=== PATIENT | male | born 1960 | race Caucasian/White ===

== ENCOUNTER 2022-07-12 14:29 | Emergency (ER) | payer OTHER ==
[~2022-07-12] VITALS: Ht 175.3 cm; Wt 68.0 kg
[~2022-07-12 14:29] MED LIST: ATOR10; CEPH500 PO; ESCI10; ESCI10 PO; GENT.3OPSA OD; VISBIOME 112.51 EACH PO
[2022-07-12 15:21] LABS: BASOPHILS ABSOLUTE AUTO 0.07 K/mm3 (0.00-0.23); BASOPHILS PERCENT AUTO 1 % (0-2); EOSINOPHILS ABSOLUTE AUTO 0.29 K/mm3 (0.00-0.68); EOSINOPHILS PERCENT AUTO 2 % (0-6); Hematocrit 35.1 % (37.0-53.0); Hemoglobin 11.5 g/dL (13.5-17.5); IMMATURE GRAN ABSOLUTE AUTO 0.03 K/mm3 (0.00-0.10); IMMATURE GRAN PERCENT AUTO 0 % (0-1); LYMPHOCYTES ABSOLUTE AUTO 2.49 K/mm3 (0.84-5.20); LYMPHOCYTES PERCENT AUTO 20 % (21-46); MONOCYTES ABSOLUTE AUTO 1.17 K/mm3 (0.16-1.47); MONOCYTES PERCENT AUTO 9 % (4-13); Mean Corpuscular HGB 31.2 pg (26.0-34.0); Mean Corpuscular HGB Conc 32.8 g/dL (31.5-36.5); Mean Corpuscular Volume 95 fL (80-100); Mean Platelet Volume 9.9 fL (9.1-12.4); NEUTROPHILS ABSOLUTE AUTO 8.43 K/mm3 (1.96-9.15); NEUTROPHILS PERCENT AUTO 68 % (41-73); Platelet Count 240 K/mm3 (150-400); RDW Coefficient Variation 13.7 % (11.7-14.2); RDW Standard Deviation 47.6 fL (35.1-46.3); Red Blood Cell Count 3.69 M/mm3 (4.30-5.90); White Blood Cell Count 12.48 K/mm3 (4.00-11.30)
[2022-07-12 15:42] LABS: Albumin, Blood 2.6 g/dL (3.4-5.0); Albumin/Globulin Ratio 0.5 (0.8-1.8); Bilirubin, Total 0.5 mg/dL (0.1-1.0); Bun/Creatinine Ratio 25.5 (12.0-20.0); Calcium, Blood 8.8 mg/dL (8.5-10.1); Creatinine, Blood 0.59 mg/dL (0.60-1.20); Globulin, Blood 5.3 g/dL (2.2-4.0); Potassium, Blood 4.4 mmol/L (3.5-5.5); Total Protein, Blood 7.9 g/dL (6.4-8.2)
[2022-07-12] MEDS ORDERED: DEXA2 PO (17:44)
[2022-07-12] MEDS ORDERED: LEVE500 PO (17:44)
== END 2022-07-12 18:07 | disposition home or self-care (01) ==
LOC: ER 14:29
PROVIDERS: Emergency Medicine
DX: R56.9 Unspecified convulsions (principal); D49.6 Neoplasm of unspecified behavior of brain; C80.1 Malignant (primary) neoplasm, unspecified; F17.200 Nicotine dependence, unspecified, uncomplicated; Z79.899 Other long term (current) drug therapy; Z79.52 Long term (current) use of systemic steroids
CPT/HCPCS: 36415; 70450; 72125; 80053; 85025; 93005; 93010; J1100; J1953

== ENCOUNTER 2022-07-21 12:51 | Emergency (ER) | payer OTHER ==
[~2022-07-21] VITALS: Ht 177.8 cm; Wt 51.7 kg
[~2022-07-21 12:51] MED LIST changes: +DEXA2 PO; +LEVE500 PO
[2022-07-21 15:14] LABS: BASOPHILS ABSOLUTE AUTO 0.04 K/mm3 (0.00-0.23); BASOPHILS PERCENT AUTO 0 % (0-2); EOSINOPHILS PERCENT AUTO 0 % (0-6); Hematocrit 39.4 % (37.0-53.0); Hemoglobin 13.1 g/dL (13.5-17.5); IMMATURE GRAN ABSOLUTE AUTO 0.41 K/mm3 (0.00-0.10); IMMATURE GRAN PERCENT AUTO 2 % (0-1); LYMPHOCYTES ABSOLUTE AUTO 1.31 K/mm3 (0.84-5.20); LYMPHOCYTES PERCENT AUTO 5 % (21-46); MONOCYTES ABSOLUTE AUTO 2.37 K/mm3 (0.16-1.47); MONOCYTES PERCENT AUTO 9 % (4-13); Mean Corpuscular HGB 32.2 pg (26.0-34.0); Mean Corpuscular HGB Conc 33.2 g/dL (31.5-36.5); Mean Corpuscular Volume 97 fL (80-100); Mean Platelet Volume 10.8 fL (9.1-12.4); NEUTROPHILS ABSOLUTE AUTO 20.96 K/mm3 (1.96-9.15); NEUTROPHILS PERCENT AUTO 84 % (41-73); Platelet Count 209 K/mm3 (150-400); RDW Coefficient Variation 14.6 % (11.7-14.2); RDW Standard Deviation 51.8 fL (35.1-46.3); Red Blood Cell Count 4.07 M/mm3 (4.30-5.90); White Blood Cell Count 25.09 K/mm3 (4.00-11.30)
[2022-07-21 15:25] LABS: Albumin/Globulin Ratio 0.7 (0.8-1.8); Bilirubin, Total 0.6 mg/dL (0.1-1.0); Bun/Creatinine Ratio 46.3 (12.0-20.0); Calcium, Blood 8.8 mg/dL (8.5-10.1); Creatinine, Blood 0.71 mg/dL (0.60-1.20); Globulin, Blood 4.1 g/dL (2.2-4.0); Potassium, Blood 4.7 mmol/L (3.5-5.5); Total Protein, Blood 7.1 g/dL (6.4-8.2)
[2022-07-21 15:48] LABS: International Normalized Ratio 1.3; Prothrombin Time Results 13.4 Sec (9.7-11.5)
[2022-07-21 16:39] LABS: Source, Urine Clean Catch
[2022-07-21 16:49] LABS: Appearance, Urine Clear (Clear); Bilirubin, Urine Neg (Neg); Blood, Urine Neg (Neg); Color, Urine Yellow (P-Yellow); Glucose Qualitative, Urine Neg (Neg); Ketones, Urine Neg (Neg); Leukocyte Esterase, Urine Neg (Neg); Nitrite, Urine Neg (Neg); Protein, Urine Neg (Neg); Specific Gravity, Urine 1.015 (1.003-1.022); Urobilinogen, Urine 1+ (Normal); pH, Urine 6.5 (5.0-8.0)
[2022-07-21 18:31] LABS: Influenza A, PCR NEGATIVE (NEGATIVE); Influenza B, PCR NEGATIVE (NEGATIVE); Resp Syncytial Virus, PCR NEGATIVE (NEGATIVE); SARS-Cov-2 (COVID-19) PCR, MMC NEGATIVE (NEGATIVE)
[2022-07-21] MEDS ORDERED: DIVA500ER PO (19:19)
== END 2022-07-21 20:00 | disposition home or self-care (01) ==
LOC: ER 12:51
PROVIDERS: Emergency Medicine
DX: S90.122A Contusion of left lesser toe(s) without damage to nail, initial encounter (principal); R41.82 Altered mental status, unspecified; Z20.822 Contact with and (suspected) exposure to COVID-19; F17.200 Nicotine dependence, unspecified, uncomplicated; Z79.899 Other long term (current) drug therapy; W19.XXXA Unspecified fall, initial encounter
CPT/HCPCS: 0241U; 36415; 70450; 80053; 81003; 82140; 83605; 85025; 85610; 85730; 87040; 93005; 93010; 93926; 96361; 96365; 99284-25; J2543; J7030

== ENCOUNTER 2022-07-30 21:51 | Inpatient (IN) | payer OTHER ==
[~2022-07-30] VITALS: Ht 175.3 cm; Wt 5.0 kg
[~2022-07-30 21:51] MED LIST changes: +DIVA500ER PO
[2022-07-30 22:58] LABS: BASOPHILS ABSOLUTE AUTO 0.02 K/mm3 (0.00-0.23); BASOPHILS PERCENT AUTO 0 % (0-2); EOSINOPHILS ABSOLUTE AUTO 0.01 K/mm3 (0.00-0.68); EOSINOPHILS PERCENT AUTO 0 % (0-6); Hematocrit 31.8 % (37.0-53.0); Hemoglobin 10.6 g/dL (13.5-17.5); IMMATURE GRAN ABSOLUTE AUTO 0.17 K/mm3 (0.00-0.10); IMMATURE GRAN PERCENT AUTO 1 % (0-1); LYMPHOCYTES ABSOLUTE AUTO 1.03 K/mm3 (0.84-5.20); LYMPHOCYTES PERCENT AUTO 4 % (21-46); MONOCYTES ABSOLUTE AUTO 0.69 K/mm3 (0.16-1.47); MONOCYTES PERCENT AUTO 3 % (4-13); Mean Corpuscular HGB 32.9 pg (26.0-34.0); Mean Corpuscular HGB Conc 33.3 g/dL (31.5-36.5); Mean Corpuscular Volume 99 fL (80-100); Mean Platelet Volume 11.5 fL (9.1-12.4); NEUTROPHILS ABSOLUTE AUTO 23.39 K/mm3 (1.96-9.15); NEUTROPHILS PERCENT AUTO 92 % (41-73); Platelet Count 97 K/mm3 (150-400); RDW Coefficient Variation 16.1 % (11.7-14.2); RDW Standard Deviation 58.4 fL (35.1-46.3); Red Blood Cell Count 3.22 M/mm3 (4.30-5.90); White Blood Cell Count 25.31 K/mm3 (4.00-11.30)
[2022-07-30 23:15] LABS: Albumin, Blood 2.3 g/dL (3.4-5.0); Albumin/Globulin Ratio 0.6 (0.8-1.8); Bilirubin, Total 0.5 mg/dL (0.1-1.0); Bun/Creatinine Ratio 38.8 (12.0-20.0); Calcium, Blood 8.6 mg/dL (8.5-10.1); Creatinine, Blood 1.16 mg/dL (0.60-1.20); Globulin, Blood 3.9 g/dL (2.2-4.0); Potassium, Blood 4.9 mmol/L (3.5-5.5); Total Protein, Blood 6.2 g/dL (6.4-8.2)
[2022-07-30 23:54] LABS: Influenza A, PCR NEGATIVE (NEGATIVE); Influenza B, PCR NEGATIVE (NEGATIVE); Resp Syncytial Virus, PCR NEGATIVE (NEGATIVE); SARS-Cov-2 (COVID-19) PCR, MMC NEGATIVE (NEGATIVE)
[2022-07-31 00:16] LABS: Source, Urine Clean Catch
[2022-07-31 00:38] LABS: Appearance, Urine Clear (Clear); Bilirubin, Urine Neg (Neg); Blood, Urine Neg (Neg); Color, Urine Yellow (P-Yellow); Glucose Qualitative, Urine Neg (Neg); Ketones, Urine 1+ (Neg); Leukocyte Esterase, Urine 1+ (Neg); Nitrite, Urine Neg (Neg); Protein, Urine 2+ (Neg); Specific Gravity, Urine 1.015 (1.003-1.022); Urobilinogen, Urine 2+ (Normal)
[2022-07-31 01:58] LABS: Bacteria Few /hpf; Hyaline Casts 0-2 /lpf (0-2); Red Blood Cells, Urine 0-2 /hpf (0-2); Squamous Epithelial Cells Few /hpf (Few)
--- NOTE | 2022-07-31 03:30 | NUR ---
ADMISSION NOTE: PATIENT RECEIVED INTO PCU RM 13 VIA STRETCHER FROM ER. PATIENT ARRIVED WITH CPAP INITIATED. PATIENT IS A/OX2, UNABLE TO RECALL MONTH/TIME/YEAR, ABLE TO FOLLOW COMMANDS. HEMODYNAMICALLY STABLE IN S[place] T[place]. FAMILY MEMBERS AT THE BEDSIDE ABLE TO ANSWER MEDICAL HX QUESTIONS.
[2022-07-31 03:55] LABS: Hematocrit 28.6 % (37.0-53.0); Hemoglobin 9.2 g/dL (13.5-17.5); Mean Corpuscular HGB 32.6 pg (26.0-34.0); Mean Corpuscular HGB Conc 32.2 g/dL (31.5-36.5); Mean Corpuscular Volume 101 fL (80-100); Mean Platelet Volume 11.5 fL (9.1-12.4); Platelet Count 86 K/mm3 (150-400); RDW Coefficient Variation 16.4 % (11.7-14.2); RDW Standard Deviation 59.8 fL (35.1-46.3); Red Blood Cell Count 2.82 M/mm3 (4.30-5.90); White Blood Cell Count 23.77 K/mm3 (4.00-11.30)
[2022-07-31 04:07] LABS: Bun/Creatinine Ratio 33.9 (12.0-20.0); Calcium, Blood 8.1 mg/dL (8.5-10.1); Creatinine, Blood 1.24 mg/dL (0.60-1.20)
--- NOTE | 2022-07-31 07:18 | NUR ---
Report received from Cm. Pt is alert, answering questions appropriately, and denies any needs nor pain/discomfort at this time. He is lying in bed, wearing CPAP at 40% FiO2 and RR 17/min. HOB is elevated 45 degrees. Brother is at the bedside. Vital signs are stable. Noted DNR status in orders. Pt is PCU status but there is no Telemetry monitoring order, and Dr. Lao (ED) note states that pt and family are deciding to transition to comfort care. Palliative Care consultation order noted from admission.
--- NOTE | 2022-07-31 10:10 | NUR ---
Joint visit with Dr De La Cruz, this PC RN, Pt's sister Asya (POA), and Pt's brother. Pt resting in bed wearing BIPAP. Family reports Pt has been needing assistance with making decisions due to his cognitive issues. Dr De La Cruz reviews plan of care and discusses options including considering comfort care and hospice. Family educated on comfort care and hospice philosophy with V/U made by family. Family elects to focus on comfort and if appropriate home with hospice. Placed comfort care order, comfort care order set, and D/C maintenance medications per V/O from Dr De La Cruz. Spoke with Primary RN Melyssa and discussed case. Palliative Care will remain available for symptom management and supportive visits.
--- NOTE | 2022-07-31 10:19 | NUR ---
Transitioning off CPAP; family is at the bedside. Pt was given IV Morphine and p.o. roxinol at the time of CPAP discontinuation. He appears to be in no distress. He is answering questions appropriately, and asked for some coffee to drink. Denies pain, anxiety, dyspnea; none of which were apparent on my assessment, either. He is calm, respirations even and unlabored. Wearing oxygen at 4 l/min n.c. delivery. Refreshments were offered to family at the bedside, as well.
--- NOTE | 2022-07-31 11:47 | NUR ---
Pt appears to be comfortable. His sister and brothers are at the bedside and state that the pt has no needs at this time. Pt appears to be sleeping. Respirations are even and unlabored. Telephone report was given to Danielle; the pt will be transferring to medical floor, room 341 at this time.
--- NOTE | 2022-07-31 16:19 | NUR ---
Spiritual care visit attempted. Upon receiving a referral for spiritual care, I visit pt. Pt and family are clearly annoyed to have a Studio Coordinator enter the rm and quickly decline a spiritual care visit. I will continue to remain available to pt and family.
--- NOTE | 2022-08-01 00:31 | NUR ---
PT SLEEPING IN HIGH SEMI FOWLERS POSITION. MEDICATED FOR AIR HUNGER.
--- NOTE | 2022-08-01 05:00 | NUR ---
EDNA PT'S SISTER CALLED TO COME TO THE HOSPITAL - SHE REPORTS SHE IS 10 MINUTES AWAY.
--- NOTE | 2022-08-01 05:10 | NUR ---
NRB ON AT 15L OXYGEN. PT CONTINUES IN RESPIRATORY DISTRESS - AIR HUNGER. AWAITING ATIVAN IV.
--- NOTE | 2022-08-01 05:24 | NUR ---
EDNA, PT'S SISTER HERE IN THE ROOM. REPORTED TO HER INTERVENTIONS DONE SINCE AIR HUNGER BEGAN THIS AM.
--- NOTE | 2022-08-01 05:28 | NUR ---
PT IS BEGINNING TO CALM DOWN. FAMILY PRESENT IN ROOM. REQUESTING DOOR SHUT AND PRIVACY WITH PT.
--- NOTE | 2022-08-01 06:51 | NUR ---
PT IS COMFORT CARE - SEE EMAR FOR MEDICATION MANAGEMENT, AND SEE PREVIOUS NN - PT WOKE UP WITH STATING "HE COULDN'T BREATH" - SEE FOLLOW UP MEDICATIONS ON EMAR. ADJUSTED OXYGEN TO NRB MASK AT 15L. FAMILY IS CURRENTLY PRESENT. PT IS CURRENTLY MORE COMFORTABLE, IN HIGH SEMI FOWLERS POSITION IN BED.
--- NOTE | 2022-08-01 09:32 | NUR ---
Comfort Care Visit Pt resting in bed wearing non rebreather and non responsive. Family at bedside. Offered supportive visit and answered questions. Family reports Pt had a rough night and struggled with comfort. Continued active listening and validated concerns. Spoke with Primary RN Debbie, discussed case and reviewed comfort medications. Palliative Care will remain available.
--- NOTE | 2022-08-01 12:35 | NUR ---
F/U visit this afternoon. Pt resting in bed, non responsive and imminent. Family at bedside. Offered supportive visit for family. Pt appears comfortable with no S/S of distress at this time. Palliative Care will remain available.
--- NOTE | 2022-08-01 16:01 | NUR ---
COMFORT CARE PT UNRESPONSIVE WITH HEAVY BREATHING EARLY THIS AM. MEDICATED PER EMAR FOR AIR HUNGER. FAMILY AT , DECLINED TO HAVE PT REPOSTIONED AT THAT TIME. PT CALMED SLIGHTLY FOR A WHILE, BUT THEN RETURNED TO HEAVY BREATHING. MEDICATED AGAIN FOR AIR HUNGER. ATIVAN GIVEN FOR RESTLESSNESS/ANXIETY. FAMILY REMAINED AT B/S UNTIL PT PASSED AT 12:30 TODAY. 12:32 DR RAY NOTIFIED OF PT'S TOD. 12:34 LAURA PERINATAL NURSE NOTIFIED OF TOD. 12:37 KARAN RN NOTIFIED AND VERIFIED. FAMILY REQUESTED [facility] TO RECEIVE BODY; [facility] SILVIO DELGADO MADE ARRANGEMENTS. [id number] MUNIR FROM [facility] LEFT WITH BODY.
== END 2022-08-01 12:30 | DRG 871 ==
LOC: ER 21:51 → MEDS 07-31 01:47 → PCU 07-31 01:47 → MEDS 07-31 12:00
PROVIDERS: Emergency Medicine; Family Medicine; Student in an Organized Health Care Education/Training Program; ADMIT Internal Medicine
PROC: 5A09357 Assistance with Respiratory Ventilation, Less than 24 Consecutive Hours, Continuous Positive Airway Pressure (ICD-10-PCS; principal; 2022-07-31)
PROC: 3E03329 Introduction of Other Anti-infective into Peripheral Vein, Percutaneous Approach (ICD-10-PCS; 2022-07-31)
DX: A41.9 Sepsis, unspecified organism (principal); J18.9 Pneumonia, unspecified organism; J96.01 Acute respiratory failure with hypoxia; C78.7 Secondary malignant neoplasm of liver and intrahepatic bile duct; C79.31 Secondary malignant neoplasm of brain; E51.2 Wernicke's encephalopathy; E87.1 Hypo-osmolality and hyponatremia; E87.20 Acidosis, unspecified; R65.20 Severe sepsis without septic shock; Z20.822 Contact with and (suspected) exposure to COVID-19; J98.2 Interstitial emphysema; C80.1 Malignant (primary) neoplasm, unspecified; Z51.5 Encounter for palliative care; F10.20 Alcohol dependence, uncomplicated; Z95.820 Peripheral vascular angioplasty status with implants and grafts; F17.200 Nicotine dependence, unspecified, uncomplicated; Z66 Do not resuscitate; Z79.899 Other long term (current) drug therapy; I10 Essential (primary) hypertension; R79.89 Other specified abnormal findings of blood chemistry
CPT/HCPCS: 0241U; 36415; 71045; 80048; 80053; 81001; 83605; 83880; 84484; 85025; 85027; 87040; 87086; 93005; 93010; 94640; 94660; 94664; 94760; 94762; 96365; 96366; 96367; 96375; 99285-25; A9270; J0456; J0696; J1630; J1650; J1940; J2060; J2270; J2930; J7030; J7050